=== PATIENT | female | born 1995 | race Caucasian/White ===

== ENCOUNTER 2016-07-08 16:46 | Emergency (ER) | payer OTHER ==
[~2016-07-08] VITALS: Ht 157.5 cm; Wt 57.6 kg
[2016-07-08 16:55] VITALS: BP 122/63
[2016-07-08] MEDS ORDERED: diphenhydrAMINE HCL 25 MG CAPSULE ONE (17:29)
[2016-07-08] MEDS ORDERED: CEPHALEXIN MONOHYDRATE 500 MG CAPSULE PO ONE ×2 (17:30)
[2016-07-08] MEDS ORDERED: diphenhydrAMINE HCL 25 MG CAPSULE PO ONE (17:30)
== END 2016-07-08 17:47 | disposition home or self-care (01) ==
LOC: ER 16:48
DX: S00.86XA Insect bite (nonvenomous) of other part of head, initial encounter (principal); F17.210 Nicotine dependence, cigarettes, uncomplicated; F10.20 Alcohol dependence, uncomplicated; W57.XXXA Bitten or stung by nonvenomous insect and other nonvenomous arthropods, initial encounter; Y93.89 Activity, other specified; Y92.89 Other specified places as the place of occurrence of the external cause; Y99.8 Other external cause status
CPT/HCPCS: A4606; Q0163; Z7610